=== PATIENT | male | born 1960 | race Native Hawaiian/Other Pacific Islander ===

== ENCOUNTER 2018-08-22 01:16 | Emergency (ER) | payer OTHER ==
[~2018-08-22] VITALS: Ht 175.3 cm; Wt 108.9 kg
[2018-08-22 02:27] VITALS: BP 148/85; TEMP 98.7
== END 2018-08-22 02:25 | disposition home or self-care (01) ==
LOC: ED 01:16
DX: M54.5 Low back pain (principal)
CPT/HCPCS: 96372; 99283; J1885